=== PATIENT | male | born 1950 | race Two or more races ===

== ENCOUNTER 2016-12-23 05:11 | Inpatient (IN) | payer BC ==
[2016-12-19 13:36] LABS: HEMATOCRIT 31.1 % (40.0-51.0); HEMOGLOBIN 10.4 g/dL (13.6-17.8)
[2016-12-19 13:51] LABS: ASCORBIC ACID (UR NOT ORDER) NEG (NEG); BILIRUBIN, URINE NEGATIVE (NEG); KETONE, URINE NEGATIVE (NEG); LEUKOCYTE ESTERASE(NOT OR SMALL (NEG); WBC (NOT ORDERED) (RFLEX) 54 (0-5)
[2016-12-19 14:10] LABS: CALCIUM, SERUM 8.3 MG/DL (8.5-10.4); CHLORIDE, SERUM 106 MMOL/L (96-112); CO2 (CARBON DIOXIDE) 28 MMOL/L (24-34); CREATININE 1.04 MG/DL (0.70-1.30); GFR AFRICAN AMERICAN 85 ML/MIN (>=60); GFR NON AFRICAN AMERICAN 73 ML/MIN (>=60); POTASSIUM, SERUM 4.3 MMOL/L (3.5-5.3); SODIUM, SERUM 140 MMOL/L (135-148)
[2016-12-19 14:11] LABS: BUN (BLOOD UREA NITROGEN) 16 MG/DL (6-23); GLUCOSE, SERUM 95 MG/DL (60-99)
[~2016-12-23] VITALS: Ht 170.2 cm; Wt 68.0 kg
--- NOTE | ~2016-12-23 | CN ---
Consultation Report [facility] [address] [place]. [address] NAME: HUGO AUGUST RAI : 48 STATUS : ADM IN PAT#: [id number] AGE: 66 ADM/REG DATE : 12/23/16 MR#: [id number] REPORT SERV DATE: 12/30/16 DICTATED BY: KLEBER ANTHONY DATE: 12/29/16 REPORT STATUS : Draft TRANSCRIBED BY: MODL DATE: 12/29/16 CONSULTATION DATE OF CONSULTATION: REASON FOR CONSULTATION: Locally advanced bladder cancer. HISTORY OF PRESENT ILLNESS: Mr. August is a fairly healthy 66-year-old gentleman with a little past medical history. He developed isaiah hematuria in 11/2016, underwent a CT scan showing an enhancing lesion within the bladder trigone and hydronephrosis on the right side. Urine cytology was positive. He underwent a transurethral resection of the bladder tumor on 12/06/2016. This showed an invasive urothelial carcinoma high grade, with bladder wall invasion, focal squamous differentiation, perineural involvement, angiolymphatic invasion. CT scan showed no signs of distant disease and no signs of enlarged lymph nodes. The patient underwent a robot-assisted laparoscopic radical cystoprostatectomy with extended pelvic lymph node dissection and ileal conduit urinary diversion. This completed on 12/23/2016. He tolerated this quite well. He is now recovering. The pathology has already returned during his hospitalization. I was consulted to discuss adjuvant chemotherapy for this by Dr. Lawrence. The pathology showed invasive urothelial carcinoma measuring just 1.4 cm. There was high- grade muscle and surprisingly with 5/15 lymph nodes involved. He also had perineural invasion. This makes this a pT2b, pN2. The patient has excellent performance status at baseline. 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 He reports that he is fairly active prior to all of this. He lives in [place] with his who has a history of breast cancer. PAST SURGICAL HISTORY: None. PAST MEDICAL HISTORY: Bladder cancer as above. FAMILY HISTORY: Only significant for colon cancer. SOCIAL HISTORY: He is a former smoker. He does not drink or smoke. 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 HOME MEDICATIONS: None. ALLERGIES: NO KNOWN. REVIEW OF SYSTEMS: Positive for fatigue only. Negative for nausea, vomiting, diarrhea, hematochezia, melena. Negative for chest pain, dyspnea on exertion, hemoptysis. Neurologic negative for changes Consultation Report [place] [id number] [place]. [id number] NAME: HUGO AUGUST RAI : 48 STATUS : ADM IN PAT#: [id number] AGE: 66 ADM/REG DATE : 12/23/16 MR#: [id number] REPORT SERV DATE: 12/30/16 DICTATED BY: KLEBER ANTHONY DATE: 12/29/16 REPORT STATUS : Draft TRANSCRIBED BY: RACHAEL DATE: 12/29/16 in memory or other complaints. PHYSICAL EXAMINATION: VITAL SIGNS: Temperature 97.7, heart rate of 70, BP 116/67. HEENT: Pupils equal, round, and reactive. No oral lesions. No cervical adenopathy. LUNGS: Clear to auscultation. No wheezes. No rales. No rhonchi. CARDIAC: Regular rate and rhythm. Normal S1, S2. ABDOMEN: Soft, nontender, nondistended. He has a midline surgical incision and a right- sided urostomy bag in place. EXTREMITIES: No clubbing, no cyanosis, no edema. NEUROLOGIC: Cranial nerves intact. Strength intact. ASSESSMENT AND PLAN: Mr. Hugo August is a 66-year-old gentleman with a locally advanced bladder cancer, high-grade lesion with 5/15 lymph nodes involved. I reviewed that most patients with kesha involvement prostate to have bladder cancer are extremely high risk of recurrence. He is an appropriate surgical resection at this point, but I think cisplatin- based adjuvant chemotherapy, is likely to reduce his risk of recurrence possibly by 25% (relative risk). I have discussed this with the patient and I think his functional status will allow for treatment, however, the kidneys further before final decisions are made. I have recommended a followup in approximately two weeks. He will see Dr. Saldivar in our [facility] office, so this will be convenient for him. MICHEL/ABBIEL Kleber Anthony M.D. / [id number] CC: MD Krishna Recio Young Won
--- NOTE | ~2016-12-23 | OP ---
Record Of Operation [facility] [address] [place]. [address] NAME: EDDIE AUGUST RAI : 46 STATUS : ADM IN [facility]#: [id number] AGE: 66 ADM/REG DATE : 12/23/16 MR#: [id number] REPORT SERV DATE: 12/23/16 DICTATED BY: RASHID LAWRENCE DATE: 12/23/16 REPORT STATUS : Draft TRANSCRIBED BY: MODL DATE: 12/23/16 DATE OF PROCEDURE: 12/23/2016 TITLE OF OPERATION: 1. Robot-assisted laparoscopic radical cysto prostatectomy. 2. Robotic removal of right ureteral stent. 3. Robotic extended bilateral pelvic lymph node dissection. 4. Ileal conduit urinary diversion. PREOPERATIVE DIAGNOSES: 1. T2 bladder cancer. 2. Hydronephrosis. POSTOPERATIVE DIAGNOSES: 1. T2 bladder cancer. 2. Hydronephrosis. INDICATIONS: Mr. August is a 66-year-old male with T2 bladder cancer with right ureteral obstruction and pending left ureteral obstruction. He has had problems with stent-related pain and bleeding. He also has a tenuous renal function. For these reasons, he is here for radical cystectomy and he will receive adjuvant chemotherapy as needed. ANESTHESIA: General. COMPLICATIONS: None. IMPLANTS: 1. 20-Angolan Bhakta catheter which is a pelvic drain. 2. A #10 round TAMAR drain. 3. Bilateral 7-Angolan ureteral stents. SPECIMEN: 1. Bladder and prostate. 2. Bilateral pelvic lymph nodes. 3. Distal left and right ureter for frozen section. NARRATIVE: The patient was brought to the operating room, identified by his wristband. General anesthesia was induced. cefoxitin was given for preoperative antibiotics. He was placed in dorsal lithotomy position, prepped and draped in sterile fashion. His abdomen was insufflated to a pressure of 15 mmHg using a Veress needle. A 12 mm incision was made above the umbilicus. A 12 mm port was placed. The abdomen was inspected. There were no adhesions. Two 8 mm ports were placed in the left side of the body and one on the right side of the body for robotic ports. A 12 mm port was placed in the right lower quadrant for an orthotic assistant port and a 5 mm AirSeal port was placed in the right upper quadrant for a second orthotic assistant port. The patient was placed in Trendelenburg and the robot was docked. We began the operation by identifying the left ureter. It was dissected out Record Of Operation [place] [id number] [facility] [address]. [address] NAME: EDDIE AUGUST RAI : 48 STATUS : ADM IN PAT#: [id number] AGE: 66 ADM/REG DATE : 12/23/16 MR#: [id number] REPORT SERV DATE: 12/23/16 DICTATED BY: RASHID LAWRENCE DATE: 12/23/16 REPORT STATUS : Draft TRANSCRIBED BY: RACHAEL DATE: 12/23/16 circumferentially and a vessel loop was placed. This was dissected out down from the pelvic brim down to the junction of the bladder. The ureter was clipped and divided and the ureter was removed from the surgical field. On the right side, the ureter was circumferentially dissected and a vessel loop was placed for retraction. The ureter was dissected out from the pelvic brim down to the junction of the bladder. The ureter was partially opened, a stent was grasped and removed from the body intact. The part of the ureter on the bladder was clipped, the rest of the ureter was divided. The ureter was then mobilized out of the surgical field. Tissue from the left and right ureter were sent to Pathology for frozen section which were negative. Next, the peritoneum overlying the seminal vesicles and vas deferens was incised. The vas deferens was clipped and divided bilaterally. The pedicles to the seminal vesicles were clipped and divided bilaterally. Denonvilliers' fascia was reflected up onto the prostate and the rectum was dissected off the prostate and bladder. Next, the medial umbilical ligament on the right side was grasped and medialized. The peritoneum lateral to this was incised. The bladder was dissected off the pelvic sidewall. This dissection was carried down to the level of the internal iliac artery where the medial umbilical ligament was clipped and divided. On the left side, the medial umbilical ligament was again grasped and medialized. Peritoneum lateral was incised. The bladder was dissected off the pelvic sidewall. The medial umbilical ligament was clipped and divided at the level of the internal iliac artery. At this time, the pedicle to the bladder were easily identifiable. A 45 mm endovascular stapler was used to staple the pedicles bilaterally. Next, the puboprostatic ligaments were divided and the endopelvic fascia were divided. The levator fibers were swept off the prostate bilaterally. The puboprostatic ligaments were divided bilaterally. The prostatic pedicles were taken again with a 45 mm endovascular stapler bilaterally. Next, the urachus was sharply divided and the bladder was dropped off the anterior abdominal wall. The dorsal vein was precisely identified and stapled with a 45 mm endovascular stapler. The urethra was then dissected out circumferentially. The urethra was divided as distal as possible, and the proximal urethra was clipped. The posterior striated sphincter was divided. The specimen was then freed from all attachments and placed into an EndoCatch bag. There were several pinpoint bleeders which were controlled with metal clips. Next, attention was turned to the pelvic lymph nodes. On the right side, fibrofatty tissue overlying the external iliac artery and vein within the obturator fossa and overlying the internal iliac veins was taken. Care was taken to clip lymphatics and vessels proximally and distally. The obturator nerve was spared. The dissection was carried from the pubic bone all the way up to the crossing of the ureter over the common iliac vessels. Similarly, on the left side, fibrofatty tissue overlying the external iliac vessels within the obturator fossa and the internal iliac vessels was removed. Care was taken to clip lymphatics proximally and distally. The obturator nerve was spared. The dissection was carried from the pubic bone up to the crossing of the ureter over the common iliac vessels. There was no ongoing bleeding. The nodes were all placed into an EndoCatch bag. Next, the left ureter was marked with a 4-0 chromic suture. It was tunneled beneath the sigmoid mesentery. The right ureter was also marked with a 4-0 chromic suture. The terminal ileum was identified and was marked with a 3-0 silk suture. At this time, the robot was undocked. The orthotic assistant port was closed with a 0 Vicryl suture using Amor-Soumya device. A #10 round TAMAR drain was placed to the left most lateral robotic port. All ports were removed. The supraumbilical incision was enlarged in a periumbilical fashion. The premarked ureters and bowel segment were delivered into the wound. The specimens were removed and sent to Pathology for analysis. At this time, attention was Record Of [address] [facility] [address] NAME: EDDIE AUGUST RAI : 48 STATUS : ADM IN PAT#: [id number] AGE: 66 ADM/REG DATE : 12/23/16 MR#: [id number] REPORT SERV DATE: 12/23/16 DICTATED BY: RASHID LAWRENCE DATE: 12/23/16 REPORT STATUS : Draft TRANSCRIBED BY: RACHAEL DATE: 12/23/16 turned to the ileal conduit. A towel was used to omar off the surgical field. A 15 cm segment of small intestine was identified approximately 20 cm from the ileocecal valve. It had good vascular supply. The bowel segment was isolated proximally and distally with a 70 mm CORRIE stapler. Next, the bowel was reanastomosed. A 70 mm CORRIE stapler was used to staple the bowel segments together in a [id number] fashion. The bowel was then closed with a 60 mm TA stapler. A 3-0 silk suture was used for a Lembert suture to reinforce this suture line. The bowel staple line was then buried with interrupted 3-0 silk sutures. Mesenteric trap was closed with a 3-0 silk suture. The distal end of the conduit was then removed with electrocautery. It was grasped with a Archivas grasper. The right ureter was identified and was spatulated with Barnes scissors. A running ureterointestinal anastomosis was performed with two 4-0 PDS sutures. A 7-Angolan ureteral stent was placed prior to completing the anastomosis. The conduit was irrigated. The anastomosis was watertight. Similarly, on the left side, the left ureter was spatulated. The ureter was very hydronephrotic and did not require much spatulation at all. It was then anastomosed to the ileal conduit using 2 running 4-0 PDS sutures. A 7-Angolan ureteral stent was placed. Prior to completing anastomosis, the stents were brought out the butt end of the conduit. The right-sided port site was grasped with a Paige grasper and a circumferential incision was made in the skin. This was carried deeply through the subcutaneous tissues down to the fascia. The excess tissue was removed. A cruciate incision was made in the fascia. A Rosina clamp was used to tunnel to the belly of the rectus into the peritoneum. The hole was bluntly dilated. The conduit was then brought out through the belly of the rectus to the skin. It was matured to the skin in a torres martinez fashion using interrupted 3-0 Vicryl suture. The wound was irrigated copiously with sterile water. There was no ongoing bleeding. The conduit was in a good position. The mesentery was not torsed. The bowel anastomosis was in a good position. The skin was closed with a #1 Monocryl suture in a running fashion. The subcutaneous tissues were closed with 3-0 Vicryl sutures in an interrupted fashion. Skin was closed with 4-0 Monocryl suture in a subcuticular fashion, and Dermabond dressing was placed. The drain was sutured in place with a 2-0 Prolene suture. A 20-Angolan Bhakta catheter was placed into the pelvis via the penis. The balloon was inflated with 15 mL of sterile water as a second pelvic drain. A urostomy appliance bag was placed. The patient was awoken from anesthesia and transferred to the recovery room in stable condition. There were no complications. JELOISE/MODL Rashid Lawrence MD / [id number] CC: Rashid Lawrence MD
[~2016-12-23 05:11] MED LIST: *UNABLE1; BREO ELLIPTA INH; DSS PO; FISH-EPA1000 MG PO; FLOMAX4 PO; MULTIPLE VIT PO; MYRBETRIQ25 MG PO; NASONEX NAS; ULTRAM50 PO; UNKNOWN PAIN MED; V2 PO
[2016-12-23 12:16] LABS: BASOPHILS 0.1 %; BASOPHILS ABSOLUTE 0.02 10/3/uL (0.0-0.16); EOSINOPHILS 0 %; HEMATOCRIT 32.3 % (40.0-51.0); HEMOGLOBIN 10.8 g/dL (13.6-17.8); IMMATURE GRANULOCYTES 0.3 %; IMMATURE GRANULOCYTES ABSOLUTE 0.04 10/3/uL (0.0-0.11); LYMPHOCYTES 3.6 %; LYMPHOCYTES ABSOLUTE 0.51 10/3/uL (0.67-4.30); MEAN CORPUS HGB CONC 33.4 g/dL (32.0-36.0); MEAN CORPUSCULAR HEMOGLOB 30.3 pg (26.0-34.0); MEAN CORPUSCULAR VOLUME 90.7 fL (80-100); MEAN PLATELET VOLUME 7.8 fL (9.2-13.0); MONOCYTES 1.8 %; MONOCYTES ABSOLUTE 0.26 10/3/uL (0.21-1.20); NEUTROPHILS 94.2 %; NEUTROPHILS ABSOLUTE 13.42 10/3/uL (2.02-8.40); RBC DISTRIBUTION WIDTH 13.4 % (12.0-16.0); RED CELL COUNT 3.56 10/6/uL (4.7-6.1); WHITE BLOOD CELLS 14.3 10/3/uL (4.5-10.5)
[2016-12-23 12:17] LABS: MANUAL DIFF NO %; PLATELET COUNT 350 10/3/uL (150-400)
[2016-12-23 12:30] LABS: CALCIUM, SERUM 8.2 MG/DL (8.5-10.4); CHLORIDE, SERUM 105 MMOL/L (96-112); CO2 (CARBON DIOXIDE) 25 MMOL/L (24-34); POTASSIUM, SERUM 4.2 MMOL/L (3.5-5.3); SODIUM, SERUM 139 MMOL/L (135-148)
[2016-12-23 12:32] LABS: BUN (BLOOD UREA NITROGEN) 12 MG/DL (6-23); CREATININE 2.14 MG/DL (0.70-1.30); GFR AFRICAN AMERICAN 36 ML/MIN (>=60); GFR NON AFRICAN AMERICAN 31 ML/MIN (>=60); GLUCOSE, SERUM 146 MG/DL (60-99)
[2016-12-24 05:09] LABS: BASOPHILS 0.1 %; BASOPHILS ABSOLUTE 0.01 10/3/uL (0.0-0.16); EOSINOPHILS 0 %; HEMOGLOBIN 9.6 g/dL (13.6-17.8); IMMATURE GRANULOCYTES 0.3 %; IMMATURE GRANULOCYTES ABSOLUTE 0.03 10/3/uL (0.0-0.11); LYMPHOCYTES 11.4 %; LYMPHOCYTES ABSOLUTE 1.33 10/3/uL (0.67-4.30); MEAN CORPUS HGB CONC 33.2 g/dL (32.0-36.0); MEAN CORPUSCULAR HEMOGLOB 30.4 pg (26.0-34.0); MEAN CORPUSCULAR VOLUME 91.5 fL (80-100); MEAN PLATELET VOLUME 8.1 fL (9.2-13.0); MONOCYTES 10.2 %; MONOCYTES ABSOLUTE 1.19 10/3/uL (0.21-1.20); NEUTROPHILS ABSOLUTE 9.07 10/3/uL (2.02-8.40); PLATELET COUNT 346 10/3/uL (150-400); RBC DISTRIBUTION WIDTH 13.5 % (12.0-16.0); RED CELL COUNT 3.16 10/6/uL (4.7-6.1); WHITE BLOOD CELLS 11.6 10/3/uL (4.5-10.5)
[2016-12-24 05:10] LABS: HEMATOCRIT 28.9 % (40.0-51.0); MANUAL DIFF NO %
[2016-12-24 05:21] LABS: BUN (BLOOD UREA NITROGEN) 11 MG/DL (6-23); CALCIUM, SERUM 8.1 MG/DL (8.5-10.4); CHLORIDE, SERUM 107 MMOL/L (96-112); CO2 (CARBON DIOXIDE) 25 MMOL/L (24-34); GFR AFRICAN AMERICAN 67 ML/MIN (>=60); GFR NON AFRICAN AMERICAN 58 ML/MIN (>=60); GLUCOSE, SERUM 141 MG/DL (60-99); POTASSIUM, SERUM 4.2 MMOL/L (3.5-5.3); SODIUM, SERUM 139 MMOL/L (135-148)
[2016-12-24 05:24] LABS: CREATININE 1.27 MG/DL (0.70-1.30)
[2016-12-25 06:11] LABS: BASOPHILS 0.1 %; BASOPHILS ABSOLUTE 0.01 10/3/uL (0.0-0.16); EOSINOPHILS 0.6 %; EOSINOPHILS ABSOLUTE 0.06 10/3/uL (0.0-0.53); HEMATOCRIT 29.4 % (40.0-51.0); HEMOGLOBIN 9.7 g/dL (13.6-17.8); IMMATURE GRANULOCYTES 0.3 %; IMMATURE GRANULOCYTES ABSOLUTE 0.03 10/3/uL (0.0-0.11); LYMPHOCYTES 14.5 %; LYMPHOCYTES ABSOLUTE 1.54 10/3/uL (0.67-4.30); MEAN CORPUSCULAR HEMOGLOB 30.9 pg (26.0-34.0); MEAN CORPUSCULAR VOLUME 93.6 fL (80-100); MEAN PLATELET VOLUME 8.2 fL (9.2-13.0); MONOCYTES 11.1 %; MONOCYTES ABSOLUTE 1.18 10/3/uL (0.21-1.20); NEUTROPHILS 73.4 %; PLATELET COUNT 344 10/3/uL (150-400); RBC DISTRIBUTION WIDTH 13.5 % (12.0-16.0); RED CELL COUNT 3.14 10/6/uL (4.7-6.1); WHITE BLOOD CELLS 10.6 10/3/uL (4.5-10.5)
[2016-12-25 06:12] LABS: MANUAL DIFF NO %
[2016-12-25 06:26] LABS: BUN (BLOOD UREA NITROGEN) 8 MG/DL (6-23); CALCIUM, SERUM 8.1 MG/DL (8.5-10.4); CHLORIDE, SERUM 106 MMOL/L (96-112); CO2 (CARBON DIOXIDE) 29 MMOL/L (24-34); CREATININE 1.14 MG/DL (0.70-1.30); GFR AFRICAN AMERICAN 76 ML/MIN (>=60); GFR NON AFRICAN AMERICAN 66 ML/MIN (>=60); GLUCOSE, SERUM 104 MG/DL (60-99); SODIUM, SERUM 140 MMOL/L (135-148)
[2016-12-26 06:36] LABS: BASOPHILS 0.2 %; BASOPHILS ABSOLUTE 0.02 10/3/uL (0.0-0.16); EOSINOPHILS 1.7 %; EOSINOPHILS ABSOLUTE 0.16 10/3/uL (0.0-0.53); HEMOGLOBIN 9.7 g/dL (13.6-17.8); IMMATURE GRANULOCYTES 0.4 %; IMMATURE GRANULOCYTES ABSOLUTE 0.04 10/3/uL (0.0-0.11); LYMPHOCYTES 18.3 %; LYMPHOCYTES ABSOLUTE 1.77 10/3/uL (0.67-4.30); MEAN CORPUS HGB CONC 33.4 g/dL (32.0-36.0); MEAN CORPUSCULAR HEMOGLOB 31.1 pg (26.0-34.0); MEAN CORPUSCULAR VOLUME 92.9 fL (80-100); MEAN PLATELET VOLUME 8.1 fL (9.2-13.0); MONOCYTES 9.6 %; MONOCYTES ABSOLUTE 0.93 10/3/uL (0.21-1.20); NEUTROPHILS 69.8 %; NEUTROPHILS ABSOLUTE 6.73 10/3/uL (2.02-8.40); PLATELET COUNT 325 10/3/uL (150-400); RBC DISTRIBUTION WIDTH 13.2 % (12.0-16.0); RED CELL COUNT 3.12 10/6/uL (4.7-6.1); WHITE BLOOD CELLS 9.7 10/3/uL (4.5-10.5)
[2016-12-26 06:39] LABS: MANUAL DIFF NO %
[2016-12-26 06:47] LABS: BUN (BLOOD UREA NITROGEN) 10 MG/DL (6-23); CALCIUM, SERUM 8.6 MG/DL (8.5-10.4); CHLORIDE, SERUM 103 MMOL/L (96-112); CO2 (CARBON DIOXIDE) 28 MMOL/L (24-34); CREATININE 1.12 MG/DL (0.70-1.30); GFR AFRICAN AMERICAN 78 ML/MIN (>=60); GFR NON AFRICAN AMERICAN 67 ML/MIN (>=60); GLUCOSE, SERUM 96 MG/DL (60-99); POTASSIUM, SERUM 4.2 MMOL/L (3.5-5.3); SODIUM, SERUM 137 MMOL/L (135-148)
[2016-12-28 13:26] LABS: BASOPHILS 0.5 %; BASOPHILS ABSOLUTE 0.03 10/3/uL (0.0-0.16); EOSINOPHILS 2.6 %; EOSINOPHILS ABSOLUTE 0.17 10/3/uL (0.0-0.53); HEMATOCRIT 30.2 % (40.0-51.0); HEMOGLOBIN 9.9 g/dL (13.6-17.8); IMMATURE GRANULOCYTES 0.3 %; IMMATURE GRANULOCYTES ABSOLUTE 0.02 10/3/uL (0.0-0.11); LYMPHOCYTES 14.9 %; LYMPHOCYTES ABSOLUTE 0.99 10/3/uL (0.67-4.30); MEAN CORPUS HGB CONC 32.8 g/dL (32.0-36.0); MEAN CORPUSCULAR HEMOGLOB 30.1 pg (26.0-34.0); MEAN CORPUSCULAR VOLUME 91.8 fL (80-100); MEAN PLATELET VOLUME 8.2 fL (9.2-13.0); MONOCYTES 11.7 %; MONOCYTES ABSOLUTE 0.78 10/3/uL (0.21-1.20); NEUTROPHILS ABSOLUTE 4.67 10/3/uL (2.02-8.40); PLATELET COUNT 397 10/3/uL (150-400); RBC DISTRIBUTION WIDTH 13.1 % (12.0-16.0); RED CELL COUNT 3.29 10/6/uL (4.7-6.1); WHITE BLOOD CELLS 6.7 10/3/uL (4.5-10.5)
[2016-12-28 13:27] LABS: MANUAL DIFF NO %
[2016-12-28 13:38] LABS: BUN (BLOOD UREA NITROGEN) 12 MG/DL (6-23); CALCIUM, SERUM 8.4 MG/DL (8.5-10.4); CHLORIDE, SERUM 102 MMOL/L (96-112); CO2 (CARBON DIOXIDE) 30 MMOL/L (24-34); CREATININE 1.27 MG/DL (0.70-1.30); GFR AFRICAN AMERICAN 67 ML/MIN (>=60); GFR NON AFRICAN AMERICAN 58 ML/MIN (>=60); GLUCOSE, SERUM 103 MG/DL (60-99); POTASSIUM, SERUM 3.8 MMOL/L (3.5-5.3); SODIUM, SERUM 138 MMOL/L (135-148)
[2016-12-29 05:07] LABS: BASOPHILS 0.3 %; BASOPHILS ABSOLUTE 0.02 10/3/uL (0.0-0.16); EOSINOPHILS 2.8 %; EOSINOPHILS ABSOLUTE 0.18 10/3/uL (0.0-0.53); HEMATOCRIT 29.1 % (40.0-51.0); HEMOGLOBIN 9.7 g/dL (13.6-17.8); IMMATURE GRANULOCYTES 0.5 %; IMMATURE GRANULOCYTES ABSOLUTE 0.03 10/3/uL (0.0-0.11); LYMPHOCYTES ABSOLUTE 1.22 10/3/uL (0.67-4.30); MEAN CORPUS HGB CONC 33.3 g/dL (32.0-36.0); MEAN CORPUSCULAR HEMOGLOB 30.5 pg (26.0-34.0); MEAN CORPUSCULAR VOLUME 91.5 fL (80-100); MEAN PLATELET VOLUME 8.3 fL (9.2-13.0); MONOCYTES 11.7 %; MONOCYTES ABSOLUTE 0.75 10/3/uL (0.21-1.20); NEUTROPHILS 65.7 %; NEUTROPHILS ABSOLUTE 4.23 10/3/uL (2.02-8.40); PLATELET COUNT 378 10/3/uL (150-400); RBC DISTRIBUTION WIDTH 13.2 % (12.0-16.0); RED CELL COUNT 3.18 10/6/uL (4.7-6.1); WHITE BLOOD CELLS 6.4 10/3/uL (4.5-10.5)
[2016-12-29 05:09] LABS: MANUAL DIFF NO %
[2016-12-29 05:20] LABS: CALCIUM, SERUM 8.4 MG/DL (8.5-10.4); CHLORIDE, SERUM 105 MMOL/L (96-112); CO2 (CARBON DIOXIDE) 27 MMOL/L (24-34); CREATININE 1.01 MG/DL (0.70-1.30); GFR AFRICAN AMERICAN 88 ML/MIN (>=60); GFR NON AFRICAN AMERICAN 76 ML/MIN (>=60); GLUCOSE, SERUM 114 MG/DL (60-99); SODIUM, SERUM 139 MMOL/L (135-148)
[2016-12-29 05:23] LABS: BUN (BLOOD UREA NITROGEN) 7 MG/DL (6-23)
== END 2016-12-30 14:55 | disposition short-term general hospital (02) | DRG 657 ==
LOC: ENRESERV → ENRESERVDT → ENRESERVTM → SDC/OF 05:11 → 4SO 05:11 → PACU 11:56 → 4SO 15:33
PROVIDERS: Urology
PROC: 0TP94DZ Removal of Intraluminal Device from Ureter, Percutaneous Endoscopic Approach (ICD-10-PCS; 2016-12-23)
PROC: 07BC4ZX Excision of Pelvis Lymphatic, Percutaneous Endoscopic Approach, Diagnostic (ICD-10-PCS; 2016-12-23)
PROC: 0T1 Urinary System, Bypass (ICD-10-PCS; 2016-12-23)
PROC: 8E0W4CZ Robotic Assisted Procedure of Trunk Region, Percutaneous Endoscopic Approach (ICD-10-PCS; 2016-12-23)
PROC: 0VT04ZZ Resection of Prostate, Percutaneous Endoscopic Approach (ICD-10-PCS; principal; 2016-12-23 06:00)
DX: C67.9 Malignant neoplasm of bladder, unspecified (principal); N13.30 Unspecified hydronephrosis
CPT/HCPCS: 36415; 71010; 74000; 80048; 81001; 82570; 85014; 85018; 85025; 86850; 86900; 86901; 87086; 87493; 87493-59; 88305; 88307; 88309; 88331; 97110-GP; 97116-GP; 97161-GP; 97165-GO; A9270-GY; C2617; G8978-CK-GP; G8979-CI-GP; J0694; J1170; J1885; J1940; J2250; J2405; J2550; J2710; J2795; J3010; P9045